=== PATIENT | male | born 1970 | race Caucasian/White ===

== ENCOUNTER → 2019-07-30 | Day surgery (SDC) | payer BC ==
[2019-07-26 16:17] LABS: ANION GAP 14.7 mmol/L (8-16); BLOOD UREA NITROGEN 14 mg/dL (7-26); BUN/CREATININE RATIO 13 (6-25); CALCIUM 9.1 mg/dL (8.4-10.2); CARBON DIOXIDE 25 mmol/L (22-29); CHLORIDE 102 mmol/L (98-107); CREATININE, SERUM 1.04 mg/dL (0.72-1.25); EST GLOMERULAR FILTRATION RATE > 60 ML/MIN (60-); GLUCOSE 129 mg/dL (74-118); POTASSIUM 3.7 mmol/L (3.5-5.1); SODIUM 138 mmol/L (136-145)
[~2019-07-30] MED LIST: BUPIVACAINE HCL 0.5% INJ 30 ML VIAL INJ ONE; CEFAZOLIN SOD 1 GM/NS 50ML 100 ML IV ONE; FENTANYL CITRATE/PF 100MCG/2 ML INJ ONE; MELOXICAM15 MG PO; MIDAZOLAM HCL 2 MG/2 ML VIAL ONE; NEOSTIGMINE 1 MG/ML 10ML VIAL ONE; ONDANSETRON HCL INJ 2MG/ML 2ML 2 MG/ML VIAL ONE; OZEMPIC1 MG/0.75 INJ; PROPOFOL IV EMULSION 10 MG/ML 20 ML VIAL ONE; SEVOFLURANE INHAL SOLN 250 ML PEN BTL ONE; TRESIBA100 UNIT/1 SC
[2019-07-30 09:45] VITALS: BP 137/81
--- NOTE | 2019-07-30 17:39 | Operative Report ---
DATE OF PROCEDURE: 07/30/2019 SURGEON: Coby Ortiz DPM FORMAT PROOFREADER: None. PREOPERATIVE DIAGNOSIS: Chronic plantar fasciitis, left foot with heel spur. POSTOPERATIVE DIAGNOSIS: Chronic plantar fasciitis, left foot with heel spur. PROCEDURE PERFORMED: Endoscopic plantar fasciotomy with removal of bone spur. COMPLICATIONS: None. CONDITION: Stable. MATERIALS: Human allograft 2 x 4, lot #[id number], expiration February 21, 2021. PROCEDURE IN DETAIL: Under monitored sedation, the patient was brought to the operating room and placed on the operating table in supine position. Following IV sedation, anesthesia was obtained with a general anesthetic. At this point, the ankle tourniquet was inflated to 250 mmHg and the leg was lowered to the table after scrubbed, prepped and draped in the usual aseptic manner. Attention was then directed to the medial aspect of the left foot, where a medial incision was made overlying the insertion of plantar fascia. The incision was deepened via sharp and blunt dissection down to the level of the plantar fascia, taking care to retract or cauterize neurovascular structures as necessary. The fascia was then isolated with a fascia isolator. The fascia isolator was removed. Trocar and cannula were then inserted. The trocar was removed. The camera was inserted. Medial, central, and lateral bands were visualized. Utilizing a fascia blade into the scope, the medial and central bands were transected leaving the lateral band intact. All instruments were removed. Attention was then directed to the medial aspect of the incision of the plantar fascia, where utilizing the use of intraoperative fluoroscopy, the bone spur was isolated and with a power rasp, the area was made smooth. The area was then flushed with copious amount of normal sterile saline solution. Human allograft was then inserted into the area of the plantar fascia to prevent adhesions and to promote healing, and to decrease the inflammatory response to the area. The incision was then closed, closing with 4-0 nylon. Clean dressing was applied consisting of Adaptic, 4 x 4s, Kerlix, and an Rylan bandage. The tourniquet was deflated. There was noted to be hyperemic response to all the digits. The patient tolerated the procedure well without complications, was transported to recovery room with vital signs stable and vascular status intact to both feet. The patient will be discharged home when he meets criteria. He was given instructions to be nonweightbearing to ice and elevate the foot. Follow up with me in the office and to call the office if any questions, concerns, or problems arise. ROSE Wren/CASTRO /[id number]
== END | disposition home or self-care (01) ==
LOC: OR 05:29
PROVIDERS: ATTEND Podiatrist Foot & Ankle Surgery
DX: M72.2 Plantar fascial fibromatosis (principal); M77.32 Calcaneal spur, left foot; E11.9 Type 2 diabetes mellitus without complications; Z79.4 Long term (current) use of insulin; Z79.899 Other long term (current) drug therapy; Z01.810 Encounter for preprocedural cardiovascular examination; Z01.812 Encounter for preprocedural laboratory examination
CPT/HCPCS: 28104; 29893; 36415 ×2; 80048; 82948; 93005; J0690; J2250; J2405; J2704; J2710; J3010; Q4150; 76000